=== PATIENT | female | born 1960 | race African-American/Black ===

== ENCOUNTER → 2021-07-12 10:25 | Outpatient (BNVA) | payer OTHER, SELFPAY | PROVIDERS: PCP Internal Medicine; Visit Provider Psychiatry & Neurology Neurology | DX: G47.33 Obstructive sleep apnea (adult) (pediatric) (principal); G43.909 Migraine, unspecified, not intractable, without status migrainosus; Z99.89 Dependence on other enabling machines and devices | CPT/HCPCS: 99212 ==

== ENCOUNTER → 2022-01-15 09:52 | Outpatient (BNVA) | payer OTHER, SELFPAY | PROVIDERS: PCP Internal Medicine; Visit Provider Nurse Practitioner Family | DX: G47.33 Obstructive sleep apnea (adult) (pediatric) (principal); G43.909 Migraine, unspecified, not intractable, without status migrainosus; Z79.899 Other long term (current) drug therapy; Z99.89 Dependence on other enabling machines and devices | CPT/HCPCS: 99212 ==

== ENCOUNTER 2022-10-17 09:23 | Outpatient (AMB) | payer OTHER, SELFPAY ==
--- NOTE | 2022-10-17 09:19 | MHC.OFFVIS ---
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 Pt's CPAP compliance and therapy response report (07/07/22-10/04/22) reviewed. Pt is on APAP [id number]. Average usage 99% and usage hours 6 hours and 45 min. Median pressure is 9.5 and the residual AHI was 3.7/hr Pt reports she sleeps well with CPAP. She has refreshed sleep. more awake and has energy during the daytime. Pt also reports no headaches since the last visit. She is was on amitriptyline but she has not have refill, and stopped it. She was evaluate for floating seeing but told that it is normal. [facility] Medical History Arthritis Cataract Hyperlipidemia CHAZ on CPAP Family History Father Cancer Mother DM (diabetes mellitus) HTN (hypertension) Family/Other DM (diabetes mellitus) HTN (hypertension) Family/Other High cholesterol Social History Alcohol intake: never Patient Tobacco Use Status: Never used Tobacco Review of Systems Const All systems reviewed & are unremarkable except as noted in HPI and below Physical Exam Vital Signs: Last Vital Signs Pulse 82 10/17/22 09:28 BP 118/64 10/17/22 09:28 Pulse Ox 98 10/17/22 09:28 Oxygen Delivery Method Room Air 10/17/22 09:28 Const Other: antecollis and left laterocollis General: cooperative and healthy appearing Orientation/consciousness: patient oriented x3 Neuro General: patient oriented x3, gait normal, tone normal and moves all extremities Cranial nerves: Yes CN's II-XII intact bilaterally Cognition (Neuro): normal cognition Psych Appearance: grossly normal Mental Status: mental status grossly normal Speech and movement: Normal speech and movement present Affect: normal affect Attitude: cooperative Assessment & Plan Assessment & Plan (1) CHAZ on CPAP: Code(s): G47.33 - Obstructive sleep apnea (adult) (pediatric); Z99.89 - Dependence on other enabling machines and devices (2) Migraine: Code(s): G43.909 - Migraine, unspecified, not intractable, without status migrainosus Plan Continue to use APAP [id number] as patient experiences good clinical effects. Stressed compliance and advised patient to clean mask and accessories routinely. Coding Level of Care Code Est Pt Level 3 (39882) Diagnoses CHAZ on CPAP G47.33; Z99.89 Migraine G43.909
[2022-10-17 09:28] VITALS: BP 118/64; PULSE 82; O2SAT 98
== END 2022-10-17 09:46 | disposition home or self-care (01) ==
PROVIDERS: PCP Internal Medicine; Visit Provider Nurse Practitioner Family
DX: G47.33 Obstructive sleep apnea (adult) (pediatric) (principal); Z99.89 Dependence on other enabling machines and devices; G43.909 Migraine, unspecified, not intractable, without status migrainosus
CPT/HCPCS: 99213

== ENCOUNTER → 2022-10-17 09:23 | Outpatient (BNVA) | payer OTHER, SELFPAY | PROVIDERS: PCP Internal Medicine; Visit Provider Nurse Practitioner Family | DX: G47.33 Obstructive sleep apnea (adult) (pediatric) (principal); G43.709 Chronic migraine without aura, not intractable, without status migrainosus; Z99.89 Dependence on other enabling machines and devices | CPT/HCPCS: 99212 ==

== ENCOUNTER 2023-12-03 13:45 | Outpatient (AMB) | payer OTHER, SELFPAY ==
--- NOTE | 2023-12-03 13:47 | A.OFFVIS_ITS ---
Vital Signs 12/03/23 13:49 Height 5 ft 5 in Weight 180 lb BMI 30.0 BP 140/78 H Blood Pressure Location Rt brachial Position Sitting Intake Visit Reasons: follow up Intake Note: Patient presents for follow up. Allergies seafood Allergy (Severe, Verified 12/03/23 13:51) Swelling Medication List - Last Reconciled 12/03/23 by Katelynn Isaac MD atorvastatin 10 mg PO DAILY CPAP As directed epinephrine IM meclizine 25 mg PO DAILY omeprazole 20 mg PO DAILY HPI Comments Details: 60y/o female comes for follow up of CHAZ on CPAP and chronic migraine. Patient is compliant and is feeling good using CPAP.I could not get her compliance report Pt is on APAP [id number]. Pt reports she sleeps well with CPAP. She has refreshed sleep. more awake and has energy during the daytime. Pt also reports no headaches since the last visit. She is was on amitriptyline but she has not have refill, and stopped it. [facility] Medical History Cataract CHAZ on CPAP Hyperlipidemia Arthritis Family History Father Cancer Mother DM (diabetes mellitus) HTN (hypertension) Family/Other DM (diabetes mellitus) HTN (hypertension) Family/Other High cholesterol Social History Alcohol intake: never Patient Tobacco Use Status: Never used Tobacco Physical Exam Vital Signs: Last Vital Signs BP 140/78 H 12/03/23 13:49 BMI result Body Mass Index 30.0 Const Other: antecollis and left laterocollis General: cooperative and healthy appearing Orientation/consciousness: patient oriented x3 Neuro General: patient oriented x3, gait normal, tone normal and moves all extremities Cranial nerves: Yes CN's II-XII intact bilaterally Cognition (Neuro): normal cognition Psych Appearance: grossly normal Mental Status: mental status grossly normal Speech and movement: Normal speech and movement present Affect: normal affect Attitude: cooperative Assessment & Plan Assessment & Plan (1) CHAZ on CPAP: Code(s): G47.33 - Obstructive sleep apnea (adult) (pediatric); Z99.89 - Dependence on other enabling machines and devices Category: Medical (2) Migraine: Code(s): G43.909 - Migraine, unspecified, not intractable, without status migrainosus Category: Medical Qualifiers: Migraine type: unspecified Status migrainosus presence: without status migrainosus Intractability: not intractable Qualified Code(s): G43.909 - Migraine, unspecified, not intractable, without status migrainosus Plan Continue to use APAP [id number] as patient experiences good clinical effects. Stressed compliance and advised patient to clean mask and accessories routinely. Coding Level of Care Code Est Pt Level 4 (46327) Complex EM visit Add On G2211 Diagnoses CHAZ on CPAP G47.33; Z99.89 Migraine without status migrainosus, not intractable, unspecified migraine type G43.909 Migraine type: unspecified Status migrainosus presence: without status migrainosus Intractability: not intractable
[2023-12-03 13:49] VITALS: BP 140/78
== END 2023-12-03 14:03 | disposition home or self-care (01) ==
PROVIDERS: PCP Internal Medicine; Visit Provider Psychiatry & Neurology Neurology
DX: G47.33 Obstructive sleep apnea (adult) (pediatric) (principal); Z99.89 Dependence on other enabling machines and devices; G43.909 Migraine, unspecified, not intractable, without status migrainosus
CPT/HCPCS: 99214; G2211

== ENCOUNTER → 2023-12-03 13:45 | Outpatient (BNVA) | payer OTHER, SELFPAY | PROVIDERS: PCP Internal Medicine; Visit Provider Psychiatry & Neurology Neurology | DX: G47.33 Obstructive sleep apnea (adult) (pediatric) (principal); G43.909 Migraine, unspecified, not intractable, without status migrainosus; Z99.89 Dependence on other enabling machines and devices | CPT/HCPCS: 99212 ==

== ENCOUNTER 2024-12-02 13:29 | Outpatient (AMB) | payer OTHER, SELFPAY ==
--- NOTE | 2024-12-02 13:31 | A.OFFVIS_ITS ---
Vital Signs 12/02/24 13:32 Height 5 ft 5 in Weight 185 lb 6 oz BMI 30.8 BP 130/76 Blood Pressure Location Rt brachial Position Sitting Pulse 85 Pulse Source Pulse Oximeter Pulse Oximetry (%) 97 Oxygen Delivery Method Room Air Intake Visit Reasons: 1 yr follow up Intake Note: Follow up CHAZ on CPAP, Migraine Team Leader/Research Psychologist Required: No Accompanied by: Self / Same As Patient Allergies seafood Allergy (Severe, Verified 12/02/24 13:31) Swelling HPI Comments Details: 64y/o female comes for follow up of CHAZ on CPAP and chronic migraine. Patient is compliant and is feeling good using CPAP. Pt is on APAP [id number]. Compliance 90% Usage hrs 5 hrs AHI 2.6 Pt reports she sleeps well with CPAP. She has refreshed sleep. more awake and has energy during the daytime. Pt also reports no headaches since she started using CPAP. She is was on amitriptyline but she has not have refill, and stopped it. [facility] Medical History Cataract CHAZ on CPAP Hyperlipidemia Arthritis Family History Father Cancer Mother DM (diabetes mellitus) HTN (hypertension) Family/Other DM (diabetes mellitus) HTN (hypertension) Family/Other High cholesterol Social History Alcohol intake: never Patient Tobacco Use Status: Never used Tobacco Physical Exam Vital Signs: Last Vital Signs Pulse 85 12/02/24 13:32 BP 130/76 12/02/24 13:32 Pulse Ox 97 12/02/24 13:32 Oxygen Delivery Method Room Air 12/02/24 13:32 BMI result Body Mass Index 30.8 Const Other: antecollis and left laterocollis General: cooperative and healthy appearing Orientation/consciousness: patient oriented x3 Neuro General: patient oriented x3, gait normal, tone normal and moves all extremities Cranial nerves: Yes CN's II-XII intact bilaterally Cognition (Neuro): normal cognition Psych Appearance: grossly normal Mental Status: mental status grossly normal Speech and movement: Normal speech and movement present Affect: normal affect Attitude: cooperative Assessment & Plan Assessment & Plan (1) CHAZ on CPAP: Code(s): G47.33 - Obstructive sleep apnea (adult) (pediatric); Z99.89 - Dependence on other enabling machines and devices Category: Medical (2) Migraine: Code(s): G43.909 - Migraine, unspecified, not intractable, without status migrainosus Category: Medical Qualifiers: Migraine type: unspecified Status migrainosus presence: without status migrainosus Intractability: not intractable Qualified Code(s): G43.909 - Migraine, unspecified, not intractable, without status migrainosus Plan Continue to use APAP [id number] as patient experiences good clinical effects. Stressed compliance and advised patient to clean mask and accessories routinely. Coding Level of Care Code Est Pt Level 4 (41505) Diagnoses CHAZ on CPAP G47.33; Z99.89 Migraine without status migrainosus, not intractable, unspecified migraine type G43.909 Migraine type: unspecified Status migrainosus presence: without status migrainosus Intractability: not intractable
[2024-12-02 13:32] VITALS: BP 130/76; PULSE 85; O2SAT 97; BMI 30.8
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
--- OUTSIDE RECORDS SUMMARY | 2024-12-02 17:11 | XMS_ITS ---
Author Name [facility] Organization Unknown Care Team Organization Name Specialty Phone Email Start Date End Da te [facility] Abhishek Oglesby Primary [facility] 12/26/2021 10/07/19 24
--- OUTSIDE RECORDS SUMMARY | 2024-12-02 17:11 | XMS_ITS | Clinical Summary ---
Author Organization [address] [place] [address] [place] [id number] Phone Care Team Providers Care Receiving Lead Name Role Phone Lindsay Soto NP Primary Care Provider [phone] Allergies Active Allergy Reactions Criticality Noted Date Comments Shellfish Derived Swelling 03/10/2024 Medications atorvastatin (LIPITOR) 10 mg tablet Take 1 tablet (10 mg total) by mouth 1 (one) time each day. 90 tablet 1 5 Active diclofenac (VOLTAREN) 1 % topical gel Apply topically 2 times daily. 6 Active loratadine (CLARITIN) 10 mg tablet Take 1 tablet (10 mg total) by mouth if needed. 8 Active omeprazole (PriLOSEC) [address] capsule Take 1 capsule (20 mg total) by mouth 1 (one) time each day. 30 capsule 1 5 Active meclizine (ANTIVERT) 12.5 mg tablet Take 1 tablet (12.5 mg total) by mouth 3 (three) times a day if needed for dizziness. 30 tablet 1 5 05/13/19 26 Active Active Problems Problem Noted Date Diagnosed Date Cataract 05/11/2024 Overview (05/11/2024): Bilateral Dizziness 05/11/2024 Globus sensation 05/11/2024 Microcalcification of breast 05/11/2024 Reactive airway disease 05/11/2024 Overview (05/11/2024): Occasional flares Chronic pain of right knee 10/24/2016 Allergic rhinitis 10/16/2016 ASCUS of cervix with negative high risk HPV 09/19 Overview (05/11/2024): Pap 11/2015 (Pt. completed treatment of bacterial vaginosis) Cervical disc disorder 10/16/2016 Overview (05/11/2024): w/ radiculopathy Diet-controlled diabetes sera litus ([facility] V24, [facility] V28) 10/16/2016 GERD (gastroesophageal reflux disease) 7 Iron deficiency anemia 10/16/2016 Osteoarthritis 10/16/2016 Overview (05/11/2024): Cervical Spine, Shoulders, Knees Osteoarthritis of knees, bilateral 03/06/2016 Overview (05/11/2024): On xray 02/27/16 Hypercholesterolemia 12/27/2014 Cervical dysplasia 04/23/2014 Overview (05/11/2024): S/o Cone Bx 03/2007 negative, needs annual PAP due to hx of dysplasia, colposcopy normal 12/22/15 Diverticulosis 04/23/2014 Uterine fibromyoma 04/23/2014 Pre-diabetes 03/01/2014 Overview (05/11/2024): A1c=6.1(12/2013) Anemia 12/22/2013 Benign breast lumps 12/22/2013 Overview (05/11/2024): Ultrasound multiple cyst left breast benign 04/27/2013 Gayle-menopause 12/22/2013 Immunizations Immunization Administration Dates Next Due Influenza Quadravalent, MDCK , 0.5ml, preservative free (Flucelvax) 6mo and older 11/08/2022,11/30/2021,11/10/2018,12/16 Influenza Quadravalent, MDCK , 0.5ml, with preservative (Flucelvax) 6mo and older 10/24/2016 Influenza Quadrivalent, 0.5m l, preservative free (Fluarix; FluLaval; Fluzone) ages 6mo and older (Afluria) 3yo and older 11/23/2020,11/09/2019,11/22/2015 Influenza trivalent, MDCK, 0 .5mL, preservative free (Flucelvax) 6mo and older 05/12/2024 Influenza trivalent, with pr eservative (Fluzone; Afluria) 6mo and older 11/15/2014 Pneumococcal conjugate 20 va lent (Prevnar 20, PCV 20) 2mo and older 05/12/2024 Pneumococcal polysaccharide 23 valent (Pneumovax 23) 2yo and older 02/25/2017 Tdap Tetanus diptheria acell ular pertussis (Boostrix; Adacel) 7yo and older 09/30/2019,12/13/2008 Zoster recombinant (Shingrix ) 19yo and older 01/29/2020,09/30/2019 Surgical History Surgery Date Site/Laterality Comments CERVICAL BIOPSY W/ LOOP ELECTRODE EXCISION 03/2007 PROCEDURE: HISTORICAL CONE BIOPSY; COMMENT: neg, needs annual PAP due to hx of dysplasia, colposcopy normal 12/22/2015 OTHER SURGICAL HISTORY 12/22/2015 PROCEDURE: HISTORY OTHER; COMMENT: Colposcopy normal COLONOSCOPY 02/2011 PROCEDURE: HISTORICAL COLONOSCOPY; COMMENT[place] [facility] [place] [facility] 10 [place] COLONOSCOPY 05/11/2021 PROCEDURE: HISTORICAL COLONOSCOPY; COMMENT: diverticulosis and sigmoid lipoma CATARACT EXTRACTION 2020 Bilateral PROCEDURE: HISTORICAL CATARACT REMOVAL Medical History Medical History Date Comments Anemia 10/16/2016 DX:Anemia Hypercholesteremia 10/16/2016 DX:Hyperchole steremia Diverticulosis 10/16/2016 DX:Diverticulosi s ASCUS of cervix with negativ e high risk HPV 10/16/2016 DX:ASCUS of cervix with nega tive high risk HPV; COMMENT: Pap 11/2015 (Pt. completed treatment of bacterial vaginosis) Allergic rhinitis 10/16/2016 DX:Allergic rh initis History of positive PPD 10/16/2016 DX:Histo ry of positive PPD; COMMENT: S/p INH x 9 mos, CXR reportedly neg prior pcp records. History of seizure disorder 10/16/2016 DX:H istory of seizure disorder; COMMENT: childhood, stopped at age 11 Uterine fibromyoma 10/16/2016 DX:Uterine fi bromyoma Cervical dysplasia 10/16/2016 DX:Cervical d ysplasia; COMMENT: S/p cone bx 03/2007 neg, needs annual pap. Colposcopy normal 12/22/2015. Chronic pain of right knee 10/24/2016 DX:Ch ronic pain of right knee Epigastric pain DX:Epigastric pa in Reactive airway disease DX:React sayra airway disease; COMMENT: Occasional flares Globus sensation DX:Globus sensa tion Osteoarthritis 10/16/2016 DX:Osteoarthriti s; COMMENT: Cervical Spine, Shoulders, Knees GERD (gastroesophageal reflux disease) 7 DX:GERD (gastroesophageal reflux disease) Iron deficiency anemia 10/16/2016 DX:Iron d eficiency anemia Diet-controlled diabetes sera litus ([facility] V24, [facility] V28) 10/16/2016 DX:Diet-controlled diabetes mellitus (HCC) Class 1 obesity due to exces s calories with serious comorbidity and body mass index (BMI) of 30.0 to 30.9 in adult 01/04/2020 DX:Class 1 obesit y due to excess calories with serious comorbidity and body mass index (BMI) of 30.0 to 30.9 in adult Cataract DX:Cataract; COM MENT: Bilateral Dehydration DX:Dehydration Family History Medical History Relation Name Comments Hypertension Brother 1 Brock Thyroid disease Brother 1 Brock Alzheimer's disease Brother 2 marzel Diabetes Brother 2 marzel Hypertension Brother 2 marzel Hypertension Brother 3 Erlin Prostate cancer Father age 70' s Breast cancer Father's side 1 aunt Other: breast cancer Father's side 2 neic e Diabetes Mother Hypertension, T hyroid Disorder Breast cancer Other paternal cousin Aunt and co usin Diabetes Sister 1 Hypertension Sickle cell anemia Sister 2 Doris No Known Problems Son 1 Hypertension Son 2 Blindness Neg Hx Cataracts Neg Hx Colon cancer Neg Hx Glaucoma Neg Hx Macular degeneration Neg Hx Ovarian cancer Neg Hx Strabismus Neg Hx Uterine cancer Neg Hx Relation Name Status Comments Brother 1 Brock Alive Brother 2 marzel Alive Brother 3 Erlin Alive Father Father's side 1 Alive Father's side 2 Alive Mother Alive Other paternal cousin Alive Sister 1 Alive Sister 2 Doris Alive Son 1 Alive Son 2 Alive Social History Tobacco Use Types Packs/Day Years Used Date Smoking Tobacco: Never Smokeless Tobacco: Never Alcohol Use Standard Drinks/Week Comments Yes 0 (1 standard drink = 0.6 oz pur e alcohol) Comments Unknown Sex and Gender Information Value Date Recorded Sex Assigned at Not on file Legal Sex Female 1:07 AM EST Gender Identity Not on file Sexual Orientation Not on file Obstetrics History Para Term AB IAB SAB Ectopic Multiple Livin g Live Births 2 2 2 2 Date Outcome GA Total Labor Labor/2nd/3rd Weight Sex Type Anes PTL Linda A1 A5 Name Clin Term Term Last Filed Vital Signs Vital Sign Reading Time Taken Comments Blood Pressure 136/82 05/12/2024 2:28 PM EDT Pulse 85 05/12/2024 2:20 PM EDT Temperature 36.8 C (98.2 F) 03/10/2024 2:21 PM EST Respiratory Rate - - Oxygen Saturation 95% 03/10/2024 2:21 PM EST Inhaled Oxygen Concentration - - Weight 85.6 kg (188 lb 12.8 oz) 05/12/2024 2:20 PM EDT Height 165.1 cm (5' 5 ) 05/12/2024 2:20 PM EDT Body Mass Index 31.42 05/12/2024 2:20 PM EDT Plan of Treatment Health Maintenance Due Date Last Done Comments Diabetes: Annual Foot Exam 1970 Diabetes: Annual Retina Eye Exam 1970 Cervical Cancer Screening: Pap Smear 05/30/2021 05/30/2018 Social Influencers of Health Screening 01/25/2022 Depression Screening 02/19/2024 COVID-19 Vaccine ( season) 2024 11/08/2021, 07/21/2021, 11/30/2020, Additional history exists Influenza Vaccine (#1) 2024 , 11/08/2022, 11/30/2021, Additional history exists Diabetes: Blood Sugar Control Test (HGBA1C) 11/14/2024 05/14/2024, 11/09/2022 Diabetes: Annual Urine Albumin-Creatinine Ratio (uACR) 05/14/2025 05/14/2024 Diabetes: Annual GFR (Glomerular Filtration Rate) 05/14/2025 05/14/2024 Breast Cancer Screening 05/11/2026 05/12/19, 04/30/2023, 11/13/2021, Additional history exists Colorectal Cancer Screening: Colonoscopy 05/11/2026 05/11/2021 Cholesterol Screening (Lipid Panel) 05/14/2029 05/14/2024, 04/18/2023 DTaP,Tdap,and Td Vaccines (3 - Td or Tdap) 09/29/2029 09/30/2019, 12/13/2008 RSV Immunization Adult Patients (1 - 1-dose 75+ series) 11/02/2035 Hepatitis C Screening Completed 10/25/2016 Zoster Vaccines Completed 01/29/2020, 09/30/2019 Pneumococcal Vaccine: 50+ Years Completed 05/12/2024, 02/25/2017 HIB Vaccines Aged Out No longer eligi ble based on patient's age to complete this topic HIV Screening Discontinued HPV Vaccines Aged Out No longer eligi ble based on patient's age to complete this topic Hepatitis A Vaccines Aged Out No long er eligible based on patient's age to complete this topic Hepatitis B Vaccines Aged Out No long er eligible based on patient's age to complete this topic IPV Vaccines Aged Out No longer eligi ble based on patient's age to complete this topic MMR Vaccines Aged Out No longer eligi ble based on patient's age to complete this topic Meningococcal ACWY Vaccine Aged Out N o longer eligible based on patient's age to complete this topic Meningococcal B Vaccine Aged Out No l onger eligible based on patient's age to complete this topic RSV Immunization Patients Under 20 months Aged Out No longer eligible based on patient's age to complete this topic Varicella Vaccines Aged Out No longer eligible based on patient's age to complete this topic Procedures Procedure Name Priority Date/Time Associated Diagnosis Comments MICROALBUMIN CREATININE URINE RATIO Routine 05/14/2024 9:43 AM EDT Pre-diabetes BASIC METABOLIC PANEL Routine 05/14/2024 9:43 AM EDT Pre-diabetes HEMOGLOBIN A1C Routine 05/14/2024 9:43 AM EDT Pre-diabetes LIPID PANEL WITH REFLEX TO DIRECT LDL Routine 05/14/2024 9:43 AM EDT Hypercholesterolemi a MG MAMMO DIGITAL SCREENING W NORBERTO BILAT Routine 05/11/2024 10:41 AM EDT Encounter for screening mammogram for breast cancer COLONOSCOPY Routine 05/11/2021 PAP SMEAR Routine 05/30/2018 HEPATITIS C SCREENING Routine 10/25/2016 from Last 3 Months or Most Recently Relevant to Health Maintenance Results * (ABNORMAL) Lipid panel with reflex to direct LDL (05/14/2024 9:43 AM EDT) Cholesterol 171 0 - 200 mg/dL LAB CHEMISTRY METHOD 05/14/2024 2:39 PM EDT [facility] Triglycerides 70 0 - 150 mg/dL LAB CHEMISTRY METHOD 05/14/2024 2:39 PM EDT [facility] HDL 55 >=40 mg/dL LAB CHEMISTRY METHOD 05/14/2024 2:39 PM EDT [facility] LDL Calculated 102(H) 0 - 100 mg/dL LAB CHEMISTRY METHOD 05/14/2024 2:39 PM EDT [facility] VLDL Cholesterol Gerardo 14 mg/dL LAB CHEMISTRY METHOD 05/14/2024 2:39 PM EDT [facility] Non HDL Chol. (LDL+VLDL) 116 <145 mg/dL LAB CHEMISTRY METHOD 05/14/2024 2:39 PM EDT [facility] Chol/HDL Ratio 3.1 0.0 - 4.4 LAB CHEMISTRY METHOD 05/14/2024 2:39 PM EDT [facility] Blood Venous blood specimen / Unknown Venipuncture / Unknown 05/14/2024 9:43 AM EDT 05/14/2024 9:43 AM EDT us Lindsay Soto NP LAB BLOOD ORDERABLES Final Resu lt [facility] [address] [place] [address], [place] [phone] * Microalbumin creatinine urine ratio (05/14/2024 9:43 AM EDT) Creatinine, Urine 159.0 mg/dL LAB CHEMISTRY METHOD 05/14/2024 3:04 PM EDT [facility] Microalb, Ur 7.4 0.0 - 29.0 mg/L LAB CHEMISTRY METHOD 05/14/2024 3:04 PM EDT [facility] Microalb/Creat Ratio 5 <30 mg/g creat LAB CHEMISTRY METHOD 05/14/2024 3:04 PM EDT [facility] Urine Urine specimen obtained by clean catch procedure / Unknown Non-blood Collection / Unknown 05/14/2024 9:43 AM EDT 05/14/2024 9:43 AM EDT Lindsay Soto [employer] IR[employer] LOADER LAB URINE ORDERABLES Final Resu lt [facility] [address] [place] [address], [place] [phone] * Hemoglobin A1c (05/14/2024 9:43 AM EDT) Pathologist [facility] Hemoglobin A1C 6.4 <6.5 % LAB CHEMISTRY METHOD 05/14/2024 9:19 PM EDT [facility] Mean Bld Glu Estim. 137 mg/dL LAB CHEMISTRY METHOD 05/14/2024 9:19 PM EDT [facility] Blood Venous blood specimen / Unknown Venipuncture / Unknown 05/14/2024 9:43 AM EDT 05/14/2024 9:43 AM EDT Lindsay Soto [employer] LO[employer]ER LAB BLOOD ORDERABLES Final Resu lt [facility] [address] [place] [address], [place] [phone] * Basic metabolic panel (05/14/2024 9:43 AM EDT) Sodium 143 133 - 145 mmol/L LAB CHEMISTRY METHOD 05/14/2024 2:30 PM [facility] Potassium 4.0 3.5 - 5.5 mmol/L LAB CHEMISTRY METHOD 05/14/2024 2:30 PM [facility] Chloride 108 96 - 110 mmol/L LAB CHEMISTRY METHOD 05/14/2024 2:30 PM [facility] CO2 30 21 - 32 mmol/L LAB CHEMISTRY METHOD 05/14/2024 2:30 PM [facility] Anion Gap 5 3 - 11 LAB CHEMISTRY METHOD 05/14/2024 2:30 PM [facility] Glucose 85 70 - 100 mg/dL LAB CHEMISTRY METHOD 05/14/2024 2:30 PM [facility] BUN 16 5 - 25 mg/dL LAB CHEMISTRY METHOD 05/14/2024 2:30 PM [facility] Creatinine 0.60 0.50 - 1.10 mg/dL LAB CHEMISTRY METHOD 05/14/2024 2:30 PM [facility] eGFR 101 >=60 mL/min/1. 73m2 LAB CHEMISTRY METHOD 05/14/2024 2:30 PM [facility] Comment:Calculation based on the Chronic Kidney Disease Epidemiology Collaboration (CKD-EPI) equation refit without adjustment for race. BUN/Creatinine Ratio 26.7 LAB CHEMISTRY METHOD 05/14/2024 2:30 PM [facility] Calcium 9.4 8.5 - 10.5 mg/dL LAB CHEMISTRY METHOD 05/14/2024 2:30 PM [facility] Blood Venous blood specimen / Unknown Venipuncture / Unknown 05/14/2024 9:43 AM EDT 05/14/2024 9:43 AM EDT us Lindsay Soto [employer]ADER LAB BLOOD ORDERABLES Final Resu lt [facility] [address] [place] [address], * MG Mammo Digital Screening w Norberto bilat (05/11/2024 10:41 AM EDT) Anatomical Region Laterality Modality Breast Bilateral Mammography 05/11/2024 2:48 PM EDT Impressions 05/11/2024 2:52 PM EDT Benign. BI-RADS CATEGORY: 1 - NEGATIVE RECOMMENDATION: Screening bilateral mammogram is recommended in 1 year. Mammo Location: [facility], [address] [place] [address], [id number], . -------- FINAL REPORT -------- Dictated By: Alma Rosa Palma Dictated Date: 05/11/2024 14:48 ET Assigned Physician: Alma Rosa Palma Reviewed and Electronically Signed By: Alma Rosa Palma Signed Date: 05/11/2024 14:52 ET Workstation ID: [id number] Transcribed By: Self Edit Transcribed Date: 05/11/2024 14:48 ET Narrative 05/11/2024 2:52 PM EDT CLINICAL: 63 years old, Female, routine annual exam. COMPARISON: Mammogram 04/30/2023. TECHNIQUE: Bilateral MLO and CC views were obtained digitally with 3-D mammogram (digital breast tomosynthesis). Computer-aided detection was utilized in evaluation of this exam (CAD). FINDINGS: There is no evidence of suspicious mass or architectural distortion. No worrisome calcifications are evident. There has been no significant change from prior exam(s). BREAST DENSITY: B - There are scattered areas of fibroglandular density. Procedure Note Alma Rosa Palma MD - 05/11/2024 CLINICAL: 63 years old, Female, routine annual exam. COMPARISON: Mammogram 04/30/2023. TECHNIQUE: Bilateral MLO and CC views were obtained digitally with 3-Dmammogram (digital breast tomosynthesis). Computer-aided detection wasutilized in evaluation of this exam (CAD). FINDINGS: There is no evidence of suspicious mass or architectural distortion. Noworrisome calcifications are evident. There has been no significantchange from prior exam(s). BREAST DENSITY: B - There are scattered areas of fibroglandular density. IMPRESSION: Benign. BI-RADS CATEGORY: 1 - NEGATIVE RECOMMENDATION: Screening bilateral mammogram is recommended in 1 year. Mammo Location: [facility], [address] [place] [address], [id number], . -------- FINAL REPORT -------- Dictated By: Alma Rosa Palma Dictated Date: 05/11/2024 14:48 ET Assigned Physician: Alma Rosa Palma Reviewed and Electronically Signed By: Alma Rosa Palma Signed Date: 05/11/2024 14:52 ET Workstation ID: [id number] Transcribed By: Self Edit Transcribed Date: 05/11/2024 14:48 ET Lindsay Soto NP IMG BI PROCEDURES Final Result * Colonoscopy (05/11/2021) Colonoscopy completed Anatomical Region Laterality Modality Other Historical Provider HEALTH MAINTENANCE Final Result * Pap smear (05/30/2018) 05/30/2018 Narrative HISTORICAL TESTING LAB RESULTING AGENCY - 06/05/2018 9:41 AM EDT [id number] THINPREP PAP, IMAGED: NEGATIVE FOR SQUAMOUS INTRAEPITHELIAL LESION AND MALIGNANCY . [place] IS PRESENT. ROMARIO ASKEW , CT(ASCP) (CASE ELECTRONICALLY SIGNED 06 04 2018) RESULT OF APTIMA HIGH RISK HPV ASSAY: HIGH RISK HPV: NEGATIVE (SEROTYPES 16,18,31,33,35,39,45,51,52,56,58,59,66,68) COMPLETED ON 2018-06-03 ADEQUACY: SATISFACTORY ENDOCERVICAL/TRANSFORMATION ZONE COMPONENT PRESENT. SOURCE: THINPREP PAP HPV ANY DX: REFLEX 16 AND 18, CERVICAL, IMAGED CLINICAL INFORMATION: HPV ANY DIAGNOSIS. MENOPAUSE, PAP HX NEG, Z12.4, Z01.419] Romario Mei DO LAB CYTOLOGY ORDERABLES Final Result HISTORICAL TESTING LAB RESULTING AGENCY * Hepatitis C Screening (10/25/2016) Hepatitis C Screening negative us Historical Provider HEALTH MAINTENANCE Final Result from Last 3 Months or Most Recently Relevant to Health Maintenance Insurance [facility] Care Teams Receiving Lead Relationship Specialty Start Date End Date Lindsay Soto NP [facility] [place] [address] PCP - General 03/26/23
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
== END 2024-12-02 13:53 | disposition home or self-care (01) ==
LOC: HO.HSMS 13:30
PROVIDERS: PCP Internal Medicine; Visit Provider Psychiatry & Neurology Neurology
DX: G47.33 Obstructive sleep apnea (adult) (pediatric) (principal); Z99.89 Dependence on other enabling machines and devices; G43.909 Migraine, unspecified, not intractable, without status migrainosus
CPT/HCPCS: 99214

== ENCOUNTER → 2024-12-02 13:29 | Outpatient (BNVA) | payer OTHER, SELFPAY | PROVIDERS: PCP Internal Medicine; Visit Provider Psychiatry & Neurology Neurology | DX: G47.33 Obstructive sleep apnea (adult) (pediatric) (principal); G43.909 Migraine, unspecified, not intractable, without status migrainosus; Z99.89 Dependence on other enabling machines and devices | CPT/HCPCS: 99212 ==